=== PATIENT | male | born 1940 | race Caucasian/White ===

== ENCOUNTER 2016-11-03 07:03 | Inpatient (IN) | payer MEDICARE ==
[2016-11-03] VITALS (12 sets, daily range): BP systolic 120–131; BP diastolic 74–89; PULSE 57–80; RESP 20; TEMP 98–98.2; O2SAT 82–98
[~2016-11-03] VITALS: Ht 182.9 cm; Wt 113.5 kg
[~2016-11-03 07:03] MED LIST: AMLO5 PO; CEPH500C3 PO; CORE25TA PO; COUM5TAB PO; FURO1TAB93 PO; GLUCTAB OR; LANO0.2510 PO; LISI-363 PO; MEVA40TA PO; NOVOLOGMXP SQ; POTA-267 PO; SPIR25TA PO; TERA5CAP34 PO; TRAD5TAB PO; TYLE3 PO
[2016-11-03 07:57] LABS: AUTOMATED NEUTROPHIL # 4.5 TH/MM3 (1.8-7.7); BASOPHIL # 0.1 TH/MM3 (0-0.2); EOSINOPHIL # 0.2 TH/MM3 (0-0.4); EOSINOPHIL % 3.1 % (0.0-4.0); HEMATOCRIT 41.6 % (39.0-51.0); HEMO FLAGS DIFF FINAL; LYMPH % 22.8 % (9.0-44.0); LYMPHOCYTE # 1.6 TH/MM3 (1.0-4.8); MEAN CELL VOLUME 102.2 FL (80.0-100.0); MEAN CORPUSCULAR HEMOGLOBIN 35.6 PG (27.0-34.0); MEAN CORPUSCULAR HGB CONC 34.9 % (32.0-36.0); MONO % 8.2 % (0.0-8.0); NEUT % 64.9 % (16.0-70.0); PLATELET COUNT 248 TH/MM3 (150-450); RED BLOOD COUNT 4.07 MIL/MM3 (4.50-5.90); RED CELL DISTRIBUTION WIDTH 13.2 % (11.6-17.2); WHITE BLOOD COUNT 6.9 TH/MM3 (4.0-11.0)
[2016-11-03 08:06] LABS: APTT (PATIENT) 28.2 SEC (24.3-30.1); INTERNATIONAL NORMALIZED RATIO 1.6 RATIO; PROTHROMBIN TIME - PATIENT 17.9 SEC (9.8-11.6)
[2016-11-03] MEDS ORDERED: POTA-243 PO (08:06)
[2016-11-03] MEDS ORDERED: SITA25 PO (08:06)
[2016-11-03] MEDS ORDERED: LOVA40TA PO (08:06)
[2016-11-03] MEDS ORDERED: FURO1TAB60 PO (08:06)
[2016-11-03] MEDS ORDERED: SPIR25TA PO (08:06)
[2016-11-03] MEDS ORDERED: CARV25TA PO (08:06)
[2016-11-03] MEDS ORDERED: DIGO0.12 PO (08:06)
[2016-11-03] MEDS ORDERED: INSU1INJ13 SQ (08:06)
[2016-11-03] MEDS ORDERED: AMLO5CAP PO (08:06)
[2016-11-03] MEDS ORDERED: WARF-23 PO (08:06)
[2016-11-03] MEDS ORDERED: TERA5CAP3 PO (08:06)
[2016-11-03] MEDS ORDERED: TRAD5TAB PO (08:06)
[2016-11-03] MEDS ORDERED: EMPA1TAB PO (08:06)
[2016-11-03] MEDS ORDERED: SODIUM CHLOR 0.9% 250 ML INJ 250 ML ONE (08:11)
[2016-11-03] MEDS ORDERED: VANCOMYCIN HCL 1000 MG VIAL ONE (08:11)
[2016-11-03 08:14] LABS: POTASSIUM 3.7 MEQ/L (3.5-5.1)
[2016-11-03] MEDS ORDERED: methylPREDNISolone SOD SUCC 125 MG/2 ML VIAL IV ONE (08:30)
[2016-11-03] MEDS ORDERED: METOPROLOL TARTRATE 25 MG TAB PO PRN (08:30)
[2016-11-03] MEDS ORDERED: INSULIN HUMAN REGULAR 1,000 UNITS/10 ML VIAL SQ PRN (08:30)
[2016-11-03] MEDS ORDERED: MUPIROCIN 2% OINT 1 APPLIC/GM SYR NASAL SCH (08:30)
[2016-11-03] MEDS ORDERED: SODIUM CHLORID 0.9% 500 ML IV SCH (08:30)
[2016-11-03] MEDS ORDERED: FAMOTIDINE 20 MG/2 ML VIAL IV ONE (08:30)
[2016-11-03] MEDS ORDERED: NO Heparin, Lovenox, Coumadin at least 12 hours prior to procedure. XX PRN (08:30)
[2016-11-03] MEDS ORDERED: NS 1000 ML IV SCH (08:30)
[2016-11-03] MEDS ORDERED: LACTATED RINGER'S 1000 ML IV SCH (08:30)
[2016-11-03] MEDS ORDERED: LORazepam 1 MG TAB SL SCH (08:30)
[2016-11-03] MEDS ORDERED: CHLORHEXIDINE GLUCONATE 2 % 1 PACK (2 CLOTHS) TOP SCH (08:30)
[2016-11-03] MEDS ORDERED: diphenhydrAMINE HCL 50 MG/ML VIAL IV ONE (08:30)
[2016-11-03] MEDS ORDERED: ceFAZolin 2 GM PREMIX 50 ML IV SCH ×2 (08:30→14:15)
[2016-11-03] MEDS ORDERED: VANCOMYCIN 500 MG VIAL ONE (08:34)
[2016-11-03] MEDS ORDERED: LIDOCAINE HCL 2% 50 ML VIAL ONE (08:34)
[2016-11-03] MEDS ORDERED: IODIXANOL 320 MG/ML 50 ML VIAL (for EPS) IV ONE (10:30)
[2016-11-03] MEDS ORDERED: PROPOFOL 200 MG/20 ML AMP IV ONE (11:00)
[2016-11-03] MEDS ORDERED: ONDANSETRON HCL 4 MG/2 ML VIAL IV PRN (11:15)
[2016-11-03] MEDS ORDERED: ACETAMINOPHEN/CODEINE 300 MG/30 MG TAB PO PRN ×2 (11:15)
[2016-11-03] MEDS ORDERED: SODIUM CHLORIDE 0.9% FLUSH 5 ML FLUSH IVF PRN (11:15)
--- NOTE | 2016-11-03 12:43 | RADRPT ---
EXAM DATE/TIME: 11/03/2016 11:17 [facility] COMPARISON: No previous studies available for comparison. INDICATIONS: S/p defibrillator surgery. MEDICAL HISTORY: Congestive heart failure. SURGICAL HISTORY: None. ENCOUNTER: Initial ACUITY: 1 day PAIN SCORE: 0/10 LOCATION: Bilateral chest FINDINGS: A left subclavian multi-lead pacemaker has its tips in the right heart. There is no pneumothorax. T he heart is enlarged. Scattered atelectasis is noted bilaterally. CONCLUSION: 1. No pneumothorax status post placement of left subclavian multi-lead pacemaker which has its tips in the right heart. 2. Cardiomegaly. 3. Scattered atelectasis. Brandon Jaime MD on November 03, 2016 at 12:23 Board Certified Radiologist. This report was verified electronically.
--- NOTE | 2016-11-03 13:42 | EKG ---
Date Performed: 11/03/2016 Time Performed: 08:03:52 PTAGE: 76 years EKG: Demand pacing Pacemaker rhythm - no further analysis Abnormal ECG COMPARED TO PRIOR ELECTRO CARDIOGRAM, No significant change. Underlying rhythm is difficult to compare. PREVIOUS TRACING : 03/04/2016 08.50 DOCTOR: Dimas Devlin Interpretating Date/Time 11/03/2016 13:40:55
[2016-11-03] MEDS ORDERED: GLUCAGON 1 MG/ML VIAL OTHER PRN (14:15)
[2016-11-03] MEDS ORDERED: DEXTROSE 50% IN WATER 50 ML VIAL(D50) IV PUSH PRN (14:15)
[2016-11-03] MEDS ORDERED: SODIUM CHLORIDE 0.9% FLUSH 5 ML FLUSH IV FLUSH PRN (14:15)
[2016-11-03] MEDS ORDERED: CEFAZOLIN INJ 500 MG in SODIUM CHLORIDE 0.9% IRR BTL 500 ML IRRIGATION SCH (14:15)
[2016-11-03] MEDS: ceFAZolin 2 GM PREMIX 50 ML IV SCH (15:44)
[2016-11-03] MEDS ORDERED: INSULIN NovoLIN REGULAR SUPPLEMENTAL SCALE SQ SCH (16:00)
[2016-11-03 17:02] LABS: BLOOD, URINE NEG (NEG); COMMENT (UR) CULT NOT INDICATED; CULTURE IF INDICATED CULT NOT INDICATED; GLUCOSE,URINE 1000 mg/dL (NEG); KETONE, URINE NEG (NEG); MUCUS URINE FEW /lpf (OCC); NITRITE,URINE NEG (NEG); PH, URINE 5.5 (5.0-8.5); URINE COLOR YELLOW (YELLW/STRAW)
[2016-11-03] MEDS: INSULIN ASPART SUPPLEMENTAL SCALE SQ SCH ×2 (17:02→21:48)
[2016-11-03] MEDS: SPIRONOLACTONE 25 MG TAB PO SCH (18:06)
[2016-11-03] MEDS: PRAVASTATIN SOD 40 MG TAB PO SCH (20:09)
[2016-11-03] MEDS: CARVEDILOL 12.5 MG TAB PO SCH (20:10)
[2016-11-03] MEDS: FUROSEMIDE 40 MG TAB PO SCH (20:10)
[2016-11-03] MEDS: POTASSIUM CHLORIDE 10 MEQ CONTROLLED RELEASE TAB PO SCH (20:10)
[2016-11-03] MEDS: TEMAZEPAM 15 MG CAP PO PRN (20:16)
[2016-11-03] MEDS ORDERED: SODIUM CHLORIDE 0.9% FLUSH 5 ML FLUSH IV FLUSH SCH (21:00)
[2016-11-03] MEDS ORDERED: SODIUM CHLORIDE 0.9% FLUSH 5 ML FLUSH IVF SCH (21:00)
[2016-11-04] VITALS (22 sets, daily range): BP systolic 106–140; BP diastolic 67–87; PULSE 49–82; RESP 16–20; TEMP 97.4–98; O2SAT 96–98
[2016-11-04] MEDS: INSULIN ASPART SUPPLEMENTAL SCALE SQ SCH ×4 (06:16→22:23)
[2016-11-04] MEDS ORDERED: MIDAZOLAM HCL 2 MG/2 ML VIAL ONE (06:39)
[2016-11-04] MEDS ORDERED: FAMOTIDINE 20 MG/2 ML VIAL ONE (06:39)
[2016-11-04] MEDS ORDERED: ACETAMINOPHEN 1000 MG/100 ML VIAL IV ONE (06:39)
[2016-11-04] MEDS ORDERED: DEXAMETHASONE SOD PHOS 4 MG/ML VIAL ONE (06:40)
[2016-11-04] MEDS ORDERED: fentaNYL CITRATE 250 MCG/5 ML AMP ONE (06:40)
[2016-11-04] MEDS ORDERED: HEPARIN SODIUM - SQ 10,000 UNITS/ML VIAL ONE (06:46)
[2016-11-04] MEDS ORDERED: BUPIVACAINE LIPOSO PF 1.3% INJ 20 ML, DEXAMETHASONE INJ 4 MG in SODIUM CHLORIDE 0.9% IN... P-ARTICULR SCH (07:00)
[2016-11-04] MEDS: ceFAZolin 2 GM PREMIX 50 ML IV SCH ×2 (07:30)
[2016-11-04] MEDS ORDERED: LACTATED RINGER'S 1000 ML IV SCH (07:30)
[2016-11-04] MEDS ORDERED: SODIUM CHLORID 0.9% 500 ML IV SCH (07:30)
[2016-11-04] MEDS ORDERED: KETAMINE HCL 500 MG/5 ML VIAL ONE (07:43)
--- NOTE | 2016-11-04 08:25 | MB ---
cc: CITLALI PATE MD DATE OF CONSULTATION: 11/03/2016 REASON FOR CONSULTATION: 76 year-old male patient of Dr. Lupillo rios, Yadiel Mack, Dr. Drake. Apparently has history of bi-IV ICD a Biotronik device that he has had some problems with the ventricular wire with the left ventricular lead malfunctioning has been apparently going on for a couple months and they have attempted to reprogram and has been draining apparently the battery. He has been somewhat short of breath, more so in the last couple months. He is also somewhat sedentary. The shortness of breath incurs with minimal levels with exertion. Denies any chest pain. No palpitations. No syncope. No pre syncope, no edema. No weight gain. No ICD shocks. We were consulted after they had attempted to replace the left ventricular wire or lead to evaluate for epicardial lead placement using a thoracotomy approach. PAST MEDICAL HISTORY: 1. 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 2. History of coronary artery disease. 3. Diabetes mellitus type 2. 4. Hypertension. 5. Paroxysmal V-tach. PAST SURGICAL HISTORY: Surgeries include the Bi-IV ICD placement in 2011 prior to that he had an AICD percutaneous PCI. ALLERGIES No known allergies MEDICATIONS home meds include 1. Amlodipine 5 mg p.o. daily. 2. Coreg 25 p.o. b.i.d. 3. Digoxin 0.125 daily. 4. Januvia daily 5. 10 mg p.o. daily. 6. Klor-Con 10 p.o. daily. 7. Lasix 40 b.i.d. 8. He takes Potassium twice a day. 9. Lovastatin 40 p.o. daily. 10. Spirolactone 25 p.o. b.i.d. 11. Terazosin 5 mg p.o. q.h.s. 12. Tradjenta 5 mg p.o. daily 13. transpire flex touch Subcu, insulin, pen as needed. 14. Coumadin 5 mg daily. Last dose was 11/02/2016. FAMILY HISTORY Noncontributory SOCIAL HISTORY No tobacco or alcohol. REVIEW OF SYSTEMS IN GENERAL: No night sweats, fever, heat and cold intolerance. SKIN: No psoriasis, itching or hives. HEAD, EYES, EARS, NOSE, AND THROAT: No blurred vision, hearing loss. RESPIRATORY: Positive for shortness of breath. CARDIOVASCULAR SYSTEM: As above in history of present illness. GASTROINTESTINAL: No diarrhea, vomiting. GENITOURINARY: No burning frequency, urgency. CENTRAL NERVOUS SYSTEM: No history of TIA, CVA, seizure disorder ENDOCRINOLOGY: Positive for diabetes. No hypothyroidism. PHYSICAL EXAMINATION: VITAL SIGNS: On exam blood pressure 130/80, heart rate 60, afebrile. IN GENERAL: Patient is awake, alert in no acute distress. HEAD, EYES, EARS, NOSE, AND THROAT: head is normocephalic, atraumatic. Pupils equal and reactive. Oral mucosa pink, moist. NECK: Supple. No JVD. HEART: Heart sounds S1-S2. Regular rate and rhythm. No rubs, murmurs, gallops amp pacer in situ left upper chest wall. LUNGS: Clear to auscultation. No wheezes, rales or rhonchi. He has a dressing over the left upper chest. ABDOMEN: Abdomen is soft, nontender. No masses or organomegaly. EXTREMITIES: Reveal no cyanosis, clubbing or edema. He has some chronic venous stasis. LABORATORY FINDINGS Shows hemoglobin of 14, hematocrit of 41, white cell count 6.1, platelet count 248, sodium 140, potassium 3.7, BUN 25, creatinine 1.21, INR 1.6. IMPRESSION This is a 76-year-old male with A BiVICD, Attempted left ventricular lead replacement due to valve function. PLAN: The plan is for epicardial lead placement in the a.m. by Dr. Pate. The procedures, alternatives and risks have been discussed with the patient. To continue to hold his Coumadin and resume after his surgery. He will be n.p.o. after midnight and further education given to the patient. DICTATED BY: DU Orozco Citlali Borjas /2:21 PM /8:16 AM
[2016-11-04] MEDS ORDERED: DO NOT ADM ANY ANTICOAGULANT DRUGS XX PRN (08:45)
[2016-11-04] MEDS: CARVEDILOL 12.5 MG TAB PO SCH ×2 (09:00→22:28)
[2016-11-04] MEDS: FUROSEMIDE 40 MG TAB PO SCH ×2 (09:00→22:28)
[2016-11-04] MEDS ORDERED: TRESIBA SQ SCH (09:00)
[2016-11-04] MEDS ORDERED: NON-FORMULARY DRUG (Amlodipine-Benazepril 1 CAP) PO SCH (09:00)
[2016-11-04] MEDS ORDERED: TRADJENTA 5 MG PO SCH (09:00)
[2016-11-04] MEDS: SPIRONOLACTONE 25 MG TAB PO SCH ×2 (09:00→18:32)
[2016-11-04] MEDS ORDERED: JARDIANCE 10 MG PO SCH (09:00)
[2016-11-04] MEDS: POTASSIUM CHLORIDE 10 MEQ CONTROLLED RELEASE TAB PO SCH ×2 (09:00→22:28)
[2016-11-04] MEDS ORDERED: FUROSEMIDE 20 MG/2 ML VIAL IV PUSH PRN ×2 (10:00→10:30)
--- NOTE | 2016-11-04 10:44 | PD.CAR.PN ---
CVT Progress Note Subjective/Hospital Course: schedule for epicardial lead today no complaints Objective: GENERAL: SKIN: Warm and dry. HEAD: Normocephalic. EYES: No scleral icterus. No injection or drainage. NECK: Supple, trachea midline. No JVD or lymphadenopathy. CARDIOVASCULAR: dressing to left chest area Regular rate and rhythm without murmurs, gallops, or rubs. RESPIRATORY: Breath sounds equal bilaterally. No accessory muscle use. GASTROINTESTINAL: Abdomen soft, non-tender, nondistended. MUSCULOSKELETAL: No cyanosis, or edema. BACK: Nontender without obvious deformity. No CVA tenderness. Vital Signs Date Time Temp Pulse Resp B/P Pulse Ox O2 Delivery O2 Flow Rate FiO2 11/04/16 08:00 55 16 125/74 97 11/04/16 06:03 52 11/04/16 05:15 49 11/04/16 04:00 98.0 50 20 107/67 96 11/04/16 04:00 49 11/04/16 03:39 49 11/04/16 02:00 50 11/04/16 01:00 52 11/04/16 00:00 51 11/04/16 00:00 98.0 54 20 112/67 96 11/03/16 23:00 60 11/03/16 22:00 64 11/03/16 21:00 60 11/03/16 20:00 98.0 57 20 131/79 96 11/03/16 20:00 60 11/03/16 19:00 57 11/03/16 18:00 64 11/03/16 17:00 72 11/03/16 16:00 62 11/03/16 15:35 98.2 57 20 122/74 98 11/03/16 15:00 60 11/03/16 13:45 80 120/84 95 Labs: Laboratory Tests Test 11/04/16 07:06 Blood Bank Comment Result Diagram: 11/03/16 0740 11/03/16 0740 Telemetry: NSR (1) HX of BV ICD Plan: for epicardial lead placement today (2) Cardiomyopathy (3) Diabetes mellitus Plan: on insulin sliding scale (4) Hypertension Plan: controlled Susanna Hayes Nov 04, 2016 10:44
[2016-11-04] MEDS ORDERED: PROPOFOL 200 MG/20 ML AMP IV ONE (12:00)
[2016-11-04] MEDS ORDERED: ETOMIDATE 20 MG/10 ML VIAL IV PUSH ONE (12:00)
[2016-11-04] MEDS ORDERED: NEOSTIGMINE 3 MG/3 ML SYR IV ONE (12:00)
[2016-11-04] MEDS ORDERED: ONDANSETRON HCL 4 MG/2 ML VIAL IV PUSH ONE ×2 (12:00)
[2016-11-04] MEDS ORDERED: NORMOSOL R INJ 1,000 ML IV ONE (12:00)
[2016-11-04] MEDS ORDERED: PHENYLEPH/NS 1000 MCG/10 ML SYR IV ONE (12:00)
[2016-11-04] MEDS ORDERED: Post-op Orders (for Pharmacy) MISC OTHER ONE (13:15)
[2016-11-04] MEDS ORDERED: ACETAMINOPHEN 325 MG TAB PO PRN (13:15)
[2016-11-04] MEDS ORDERED: ACETAMINOPHEN/HYDROcodone 325 MG/5 MG TAB PO PRN (13:15)
[2016-11-04] MEDS ORDERED: ONDANSETRON HCL 4 MG/2 ML VIAL IV PUSH PRN (13:15)
[2016-11-04] MEDS ORDERED: SODIUM CHLORIDE 0.9% FLUSH 5 ML FLUSH IV FLUSH PRN (13:15)
[2016-11-04] MEDS ORDERED: MAGNESIUM HYDROXIDE SUSP 30 ML CUP PO PRN (13:15)
--- NOTE | 2016-11-04 13:44 | PD.OP ---
cc: Wendy Olivo MD; Calvin Mack MD; Luciano Drake MD Operative Report Date of Surgery: Nov 04, 2016 Preoperative Diagnosis: Postoperative Diagnosis: Procedure: 1. Left Lateral Mini-Thoracotomy 2. Epicardial Left Ventricular Lead 3. Intercostal nerve Block. . Surgeon: Wendy Olivo Caddy/Caddie Supervisor(s): Jesus Osborn Operation and Findings: PREOPERATIVE DIAGNOSIS 1. Cardiomyopathy 2. CHF POSTOPERATIVE DIAGNOSIS same PROCEDURES 1. Left Lateral Mini-Thoracotomy 2. Epicardial Left Ventricular Lead 3. Intercostal nerve Block. SURGEON Wendy Olivo MD MANAGER OB Isacc Koehler, [facility] General Double-lumen endotracheal. BATTERY CHECKER JUANA Stevens, B[place] Zhu MD OPERATIVE TIME Please see record. COMPLICATIONS None. INDICATION FOR PROCEDURE The patient is a 76yo with cardiomyopathy and recurrent CHF who is being brought to the operating room for epicardial left ventricular lead placement following unsuccessful percutaneous attempt. DESCRIPTION OF PROCEDURE The patient was brought to the operating suite and placed in supine position with the left chest slightly elevated. Following satisfactory induction of general endotracheal anesthesia, he was prepped and draped in the usual sterile fashion. A mini-thoracotomy (5 cm) was then performed in the 4th ICS anterior axillary line and carried down to the pleura. The left pleural space was entered. The pericardium was identified. There was a thick layer of fat overlying the pericardium which was dissected free. A pericardiotomy was performed and viable left ventricular muscle identified. A Biotronik LV screw in lead was placed on the ventricular surface. Serial # [id number], REF # [id number]. Parameters measured were excellent with threshold of 1.4 V at 1.0 ms . The previously closed infraclavicular incision was opened and the pocket irrigated with antibiotic solution. The lead was tunneled and connected to the generator device. The pericardium was reapproximated. A #24-Kiswahili Rashi drain was placed in the pleural space. Intercostal nerve block was performed at the level of the incision and a rib space above and below using Exparel solution. Wounds were closed with 2-0, 3-0, and 4-0 Monocryl. The patient tolerated the procedure well and postoperatively went to recovery in stable condition. Wendy Olivo MD Nov 04, 2016 13:44 Wendy Olivo MD Nov 04, 2016 13:44
[2016-11-04] MEDS ORDERED: *morphine SULFATE 8 MG/ML PERIprocedure ONLY ONE (14:05)
--- NOTE | 2016-11-04 14:41 | RADRPT ---
EXAM DATE/TIME: 11/04/2016 13:58 [facility] COMPARISON: CHEST SINGLE AP, November 03, 2016, 11:17. INDICATIONS : Evaluate congestive heart failure. MEDICAL HISTORY : None. SURGICAL HISTORY : None. ENCOUNTER: Initial ACUITY: 2 days PAIN SCORE: 0/10 LOCATION: chest FINDINGS: Pacemaker is implanted in the left chest. Heart is minimally enlarged. Pulmonary vascularity is nor mal. Small amount of subcutaneous air is seen over the left chest wall. Abandon pacing leads are evident as well. CONCLUSION: 1. There is no pneumothorax. 2. Minimal subcutaneous emphysema. Yadiel Adler MD FACR on November 04, 2016 at 14:30 Board Certified Radiologist. This report was verified electronically.
[2016-11-04] MEDS: ACETAMINOPHEN 1000 MG/100 ML VIAL IV SCH ×2 (14:48→22:27)
[2016-11-04] MEDS ORDERED: KETOROLAC TROMETHAMINE 30 MG/ML (IVP) VIAL IV PUSH SCH (15:00)
[2016-11-04] MEDS: ACETAMINOPHEN/HYDROcodone 325 MG/5 MG TAB PO PRN (15:44)
[2016-11-04] MEDS: DIGOXIN 0.125 MG TAB PO SCH (15:45)
[2016-11-04] MEDS: LISINOPRIL 10 MG TAB PO SCH (15:45)
[2016-11-04] MEDS: amLODIPine BESYLATE 5 MG TAB PO SCH (15:45)
[2016-11-04] MEDS: TERAZOSIN HCL 5 MG CAP PO SCH (15:45)
[2016-11-04] MEDS ORDERED: WARFARIN SOD 5 MG TAB PO SCH (16:00)
--- NOTE | 2016-11-04 16:53 | EKG ---
Date Performed: 11/04/2016 Time Performed: 03:31:20 PTAGE: 76 years EKG: Atrial fibrillation with slow ventricular response with intermittent conduction defect Righ t bundle branch block Possible septal infarct - age undetermined LVH with secondary repolarization ab normality Inferior/lateral ST-T changes may be due to hypertrophy and/or Ischemia. When compared to p revious tracing, previous tracing showed Paced rhythm, this tracing shows atrial fibrillation with sl ow Ventricular response. No pacer spikes seen here and the rate is slower, clinical Correlation is ambrocio ggested. Abnormal ECG PREVIOUS TRACING : 11/03/2016 08.03 DOCTOR: Julio Jacques Interpretating Date/Time 11/04/2016 16:52:32
--- NOTE | 2016-11-04 18:13 | HHI.PR ---
Subjective Remarks Feeling ok Objective Vital Signs Date Time Temp Pulse Resp B/P Pulse Ox O2 Delivery O2 Flow Rate FiO2 11/04/16 18:07 82 11/04/16 17:58 72 11/04/16 16:54 98 21 11/04/16 16:00 68 11/04/16 15:15 62 11/04/16 15:15 97.9 71 20 140/87 96 11/04/16 15:00 97.9 81 16 127/82 99 Nasal Cannula 3 Arterial Line 11/04/16 14:45 71 16 139/88 97 Nasal Cannula 3 11/04/16 14:30 70 16 132/87 96 Nasal Cannula 4 Arterial Line 11/04/16 14:15 69 16 149/94 95 Nasal Cannula 5 140/72 11/04/16 14:00 72 16 142/85 94 Nasal Cannula 5 135/70 11/04/16 13:49 96.8 81 16 127/82 99 Simple Mask 10 132/68 11/04/16 11:11 97.4 52 138/81 97 11/04/16 11:00 52 11/04/16 10:50 97.4 52 138/81 96 11/04/16 10:00 54 11/04/16 09:00 52 11/04/16 08:00 55 16 125/74 97 11/04/16 06:03 52 11/04/16 05:15 49 11/04/16 04:00 98.0 50 20 107/67 96 11/04/16 04:00 49 11/04/16 03:39 49 11/04/16 02:00 50 11/04/16 01:00 52 11/04/16 00:00 51 11/04/16 00:00 98.0 54 20 112/67 96 11/03/16 23:00 60 11/03/16 22:00 64 11/03/16 21:00 60 11/03/16 20:00 98.0 57 20 131/79 96 11/03/16 20:00 60 11/03/16 19:00 57 I/O 11/03/16 11/03/16 11/03/16 11/04/16 11/04/16 11/04/16 07:00 15:00 23:00 07:00 15:00 23:00 Intake Total 490 ml 240 ml 1250 ml 360 ml Output Total 500 ml 1225 ml 762 ml Balance -10 ml -985 ml 488 ml 360 ml Intake Oral 240 ml 240 ml 0 ml 360 ml IV Total 250 ml 0 ml FFP 250 ml Other 1000 ml Output Urine Total 500 ml 1225 ml 600 ml Drainage Total 62 ml Estimated Blood Loss 100 ml Result Diagram: 11/03/16 0740 11/03/16 0740 Imaging Alert, fully oriented Lungs: ventilated Heart: S1, S2 regular, no gallop abdomen: soft, no mass Ext: no edema Clean left infraclavicular area surgical wound Last Impressions Chest X-Ray 11/04/16 0000 Signed Impressions: Service Date/Time: Friday, November 04, 2016 13:58 - CONCLUSION: 1. There is no pneumothorax. 2. Minimal subcutaneous emphysema. Yadiel Adler MD FACR Current Medications Medications (Trade) Dose Ordered Sig/Adrián Route Start Time Stop Time Status Last Admin Miscellaneous Information NO Heparin, Loven... UNSCH PRN XX 11/03/16 08:30 11/07/16 08:29 (Restoril) 15 mg HS PRN PO 11/03/16 11:15 11/03/16 20:16 (Coreg) 25 mg BID PO 11/03/16 21:00 11/03/16 20:10 (Lanoxin) 0.125 mg DAILY PO 11/04/16 09:00 11/04/16 15:45 (Lasix) 40 mg BID PO 11/03/16 21:00 11/03/16 20:10 (Pravachol) 40 mg HS PO 11/03/16 21:00 11/03/16 20:09 (KCl) 10 meq BID PO 11/03/16 21:00 11/03/16 20:10 (Aldactone) 25 mg BIDPC PO 11/03/16 18:00 11/03/16 18:06 (Hytrin) 5 mg DAILY PO 11/04/16 09:00 11/04/16 15:45 (Coumadin) 5 mg DAILY@1600 PO 11/04/16 16:00 Hold Patient Own Medication PT OWN MED: JARDIA... DAILY PO 11/04/16 09:00 Hold Patient Own Medication PT OWN MED: ROSANNE... DAILY SQ 11/04/16 09:00 Hold Patient Own Medication PT OWN MED: TRADJE... DAILY PO 11/04/16 09:00 Hold (Norvasc) 5 mg DAILY PO 11/03/16 12:00 11/04/16 15:45 (Prinivil) 10 mg DAILY PO 11/04/16 09:00 11/04/16 15:45 (D50w (Vial) Inj) 25 ml UNSCH PRN IV PUSH 11/03/16 14:15 Glucagon 1 mg 1 mg UNSCH PRN OTHER 11/03/16 14:15 Lactated Ringer's 1,000 ml @ 30 mls/hr Q24H IV 11/04/16 07:30 (NS 500 ml Inj) 500 ml @ 30 mls/hr [id number] IV 11/04/16 07:30 11/05/16 07:29 Miscellaneous Information ALL NURSING DEPARTME... UNSCH PRN XX 11/04/16 08:45 11/05/16 08:44 (NS Flush) 2 ml BID IV FLUSH 11/04/16 21:00 IV Flush 2 ml 2 ml UNSCH PRN IV FLUSH 11/04/16 13:15 (Ancef Inj/NS Inj) 100 ml @ 200 mls/hr Q8H IV 11/04/16 16:00 11/05/16 08:29 11/04/16 17:05 (Protonix) 40 mg HS PO 11/04/16 21:00 (Zofran Inj) 4 mg Q6H PRN IV PUSH 11/04/16 13:15 (Surfak) 240 mg HS PO 11/04/16 21:00 (Milk Of Magnesia Liq) 30 ml DAILY PRN PO 11/04/16 13:15 (Tylenol) 650 mg Q4H PRN PO 11/04/16 13:15 (Sellers 5-325 Mg) 1 tab Q3H PRN PO 11/04/16 13:15 11/04/16 15:44 (Sellers 5-325 Mg) 2 tab Q3H PRN PO 11/04/16 13:15 (Ofirmev Inj) 1,000 mg Q6H IV 11/04/16 15:00 11/05/16 09:01 (Toradol Inj) 15 mg Q6H IV PUSH 11/04/16 21:00 11/05/16 15:01 Assessment and Plan Problem List: (1) HX of BV ICD Status: Acute Plan: Epicardial lead implanted today. Doing well BIV pacing (2) Cardiomyopathy Status: Acute Plan: On optimal medical management (3) Hypertension Status: Acute Plan: SBP 127 Meds reinitiated Luciano Drake MD Nov 04, 2016 18:13
--- NOTE | 2016-11-04 19:51 | MP ---
cc: EMILIA RAMIREZ M.D. DATE OF SURGERY: 11/04/2016. OPERATION: Biventricular pacer-defibrillator removal, pocket revision, left subclavian venoplasty and discontinued attempt to implant a left ventricular pacing and sensing lead via the coronary sinus. INDICATIONS FOR THE PROCEDURE: Mr. Jimenes is a 76-year-old gentleman with congestive heart failure, cardiomyopathy on optimal medical treatment with an ejection fraction of 30%, CHF class III, previous biventricular pacer-defibrillator implanted in 2011. The left ventricular lead is not working. He was admitted for new lead implantation. The risks, the nature and the benefits of the procedure were clearly stated to him. The risks include pneumothorax, cardiac perforation, stroke, need for open heart surgery and even . The patient understood and agreed to proceed. DESCRIPTION OF THE PROCEDURE IN DETAIL: After written informed consent was obtained, the patient was brought to the EP lab where he was prepped and draped in the usual sterile fashion. Conscious sedation was initiated and maintained throughout the procedure by the anesthesiologist. Once sedation was verified, the left infraclavicular area was anesthetized with 2% Xylocaine. Using a #11 scalpel, a 3-cm incision was made over the existing generator. Dissection was then taken down to the deep fascial layer using Bovie cautery and blunt dissection. Once exposed, the generator was removed from the pocket. Scar tissue was removed. The lead pocket was expanded. Pocket revision was performed. Then using modified Seldinger technique, I did attempt to cannulate the left subclavian. At that point, I was unable to advance the wire. I did try to advance the Glidewire; I was unable to advance the Glidewire. Over the Glidewire, I did advance a 5-Armenian dilator and introducer. As the wire was removed, a peripheral venography was performed that showed complete or occlusion of the left subclavian. At this point I decided to proceed with venoplasty. A straight Glidewire was advanced. After multiple manipulations, I was able to cross the lesion. At this point, I did attempt to dilate with a 7-Armenian dilator. I was unable to cross. I decided to proceed with venoplasty. The Glidewire was exchanged over a Quick-Cross for a stiff Amplatz wire. Then over the wire, an Admiral 40 x 8 balloon was advanced. I inflated the balloon at 12 atmospheres for 8.3 mm. Three inflations were performed. At that point, I did remove the balloon. Over the wire, a 9-Armenian dilator and introducer were advanced. As the dilator was removed, a CS cannulation sheath was advanced. At this point, I did remove the wire. Through the sheath, a quadripolar steerable catheter was advanced. I did attempt to cannulate the coronary sinus on multiple occasions. I did access the coronary sinus but the CS cannulation and the wire were unable to advance. 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 At that point, I decided not to proceed with further attempts. The procedure was complete. I did not want to overload the patient with contrast. The CS cannulation sheath and the #9 Armenian catheter were removed. A 2-0 Vicryl suture was placed at the exit point to prevent back bleeding. Then the pocket was copiously irrigated using antibiotic solution. I did cut the head of the left ventricular lead. A plug was put at the left ventricular portion. The patient is going to be referred for epicardial lead implantation. I did proceed with wound closure. The deep fascial layer was approximated using #2-0 Vicryl suture in a continuous fashion. The subcutaneous layer was approximated using #2-0 Vicryl suture in a continuous fashion. Steri-Strips were applied to the wound followed by a sterile compression dressing. This was a very difficult and complex case. No incident reports. For information about hardware, please refer to the previous dictation. CONCLUSIONS: 1. Biventricular pacer-defibrillator removal, pocket revision, left subclavian venoplasty. 2. Discontinued attempt to implant a left ventricular lead. COMMENTS AND RECOMMENDATIONS: As mentioned before, the patient is going to be transferred to the recovery room. CV surgery will be consulted for lead insertion. MD CALOS Mckay/BARRETT /12:18 PM /7:38 PM
[2016-11-04] MEDS ORDERED: PANTOPRAZOLE SOD 40 MG DELAYED RELEASE TAB PO SCH (21:00)
[2016-11-04] MEDS: KETOROLAC TROMETHAMINE 30 MG/ML (IVP) VIAL IV PUSH SCH (21:00)
[2016-11-04] MEDS ORDERED: DOCUSATE CALCIUM 240 MG CAP PO SCH (21:00)
[2016-11-04] MEDS: SODIUM CHLORIDE 0.9% FLUSH 5 ML FLUSH IV FLUSH SCH (22:27)
[2016-11-04] MEDS: PRAVASTATIN SOD 40 MG TAB PO SCH (22:27)
[2016-11-04] MEDS ORDERED: INSULIN HUMAN REGULAR 1,000 UNITS/10 ML VIAL SQ PRN (23:45)
[2016-11-05] VITALS (19 sets, daily range): BP systolic 96–116; BP diastolic 62–72; PULSE 68–72; RESP 18–20; TEMP 97.4–98; O2SAT 95–96
[2016-11-05] MEDS: ACETAMINOPHEN/HYDROcodone 325 MG/5 MG TAB PO PRN (00:56)
[2016-11-05] MEDS: TEMAZEPAM 15 MG CAP PO PRN (02:08)
[2016-11-05] MEDS: ACETAMINOPHEN 1000 MG/100 ML VIAL IV SCH ×2 (02:08→09:14)
[2016-11-05] MEDS: KETOROLAC TROMETHAMINE 30 MG/ML (IVP) VIAL IV PUSH SCH ×2 (02:09→09:19)
--- NOTE | 2016-11-05 04:45 | RADRPT ---
EXAM DATE/TIME: 11/05/2016 03:27 [facility] COMPARISON: CHEST SINGLE AP, November 04, 2016, 13:58. INDICATIONS : Shortness of breath, possible pulmonary disease. MEDICAL HISTORY : Congestive heart failure. SURGICAL HISTORY : None. ENCOUNTER: Subsequent ACUITY: 3 days PAIN SCORE: 0/10 LOCATION: Bilateral chest FINDINGS: Trace bibasilar atelectasis again noted not significantly changed. No large effusion seen. No pneumot horax. Mild cardiomegaly is stable. Cardiac pacer/defibrillator again noted. CONCLUSION: No significant change mild bibasilar atelectasis and cardiomegaly. Darci Dow MD on November 05, 2016 at 4:43 Board Certified Radiologist. This report was verified electronically.
[2016-11-05 04:54] LABS: BASOPHIL % 0.3 % (0.0-2.0); HEMATOCRIT 33.2 % (39.0-51.0); HEMO FLAGS DIFF FINAL; LYMPH % 5.6 % (9.0-44.0); LYMPHOCYTE # 0.6 TH/MM3 (1.0-4.8); MEAN CELL VOLUME 101.3 FL (80.0-100.0); MEAN CORPUSCULAR HEMOGLOBIN 35.3 PG (27.0-34.0); MEAN CORPUSCULAR HGB CONC 34.8 % (32.0-36.0); NEUT % 88.1 % (16.0-70.0); PLATELET COUNT 179 TH/MM3 (150-450); RED BLOOD COUNT 3.28 MIL/MM3 (4.50-5.90); RED CELL DISTRIBUTION WIDTH 13.4 % (11.6-17.2); WHITE BLOOD COUNT 11.4 TH/MM3 (4.0-11.0)
[2016-11-05 05:11] LABS: BICARBONATE 22.9 MEQ/L (21.0-32.0); POTASSIUM 4.6 MEQ/L (3.5-5.1)
[2016-11-05] MEDS: INSULIN ASPART SUPPLEMENTAL SCALE SQ SCH (07:00)
[2016-11-05] MEDS: SODIUM CHLORIDE 0.9% FLUSH 5 ML FLUSH IV FLUSH SCH (09:15)
[2016-11-05] MEDS: TERAZOSIN HCL 5 MG CAP PO SCH (09:17)
[2016-11-05] MEDS: POTASSIUM CHLORIDE 10 MEQ CONTROLLED RELEASE TAB PO SCH (09:17)
[2016-11-05] MEDS: FUROSEMIDE 40 MG TAB PO SCH (09:17)
[2016-11-05] MEDS: SPIRONOLACTONE 25 MG TAB PO SCH (09:17)
[2016-11-05] MEDS: DIGOXIN 0.125 MG TAB PO SCH (09:18)
[2016-11-05] MEDS: amLODIPine BESYLATE 5 MG TAB PO SCH (09:18)
[2016-11-05] MEDS: LISINOPRIL 10 MG TAB PO SCH (09:18)
[2016-11-05] MEDS: CARVEDILOL 12.5 MG TAB PO SCH (09:18)
--- NOTE | 2016-11-05 10:32 | PD.CARD.PN ---
Subjective Subjective Remarks Pt feels well, wants to go home soon after chest tube pulled. Objective Medications Administered Medications Medications (Trade) Dose Ordered Sig/Adrián Route PRN Reason Start Time Stop Time Status Last Admin Dose Admin Temazepam (Restoril) 15 mg HS PRN PO SLEEP 11/03/16 11:15 11/05/16 02:08 Carvedilol (Coreg) 25 mg BID PO 11/03/16 21:00 11/05/16 09:18 Digoxin (Lanoxin) 0.125 mg DAILY PO 11/04/16 09:00 11/05/16 09:18 Furosemide (Lasix) 40 mg BID PO 11/03/16 21:00 11/05/16 09:17 Pravastatin Sodium (Pravachol) 40 mg HS PO 11/03/16 21:00 11/04/16 22:27 Potassium Chloride (KCl) 10 meq BID PO 11/03/16 21:00 11/05/16 09:17 Spironolactone (Aldactone) 25 mg BIDPC PO 11/03/16 18:00 11/05/16 09:17 Terazosin HCl (Hytrin) 5 mg DAILY PO 11/04/16 09:00 11/05/16 09:17 Amlodipine Besylate (Norvasc) 5 mg DAILY PO 11/03/16 12:00 11/05/16 09:18 Lisinopril (Prinivil) 10 mg DAILY PO 11/04/16 09:00 11/05/16 09:18 IV Flush (NS Flush) 2 ml BID IV FLUSH 11/04/16 21:00 11/05/16 09:15 Pantoprazole Sodium (Protonix) 40 mg HS PO 11/04/16 21:00 11/04/16 21:00 Docusate Calcium (Surfak) 240 mg HS PO 11/04/16 21:00 11/04/16 21:00 Acetaminophen/ Hydrocodone Bitart ([place] 5-325 Mg) 1 tab Q3H PRN PO PAIN SCALE 3 TO 5 11/04/16 13:15 11/05/16 00:56 Acetaminophen/ Hydrocodone Bitart ([place] 5-325 Mg) 2 tab Q3H PRN PO PAIN SCALE 6 TO 10 11/04/16 13:15 11/05/16 04:09 Ketorolac Tromethamine (Toradol Inj) 15 mg Q6H IV PUSH 11/04/16 21:00 11/05/16 15:01 11/05/16 09:19 Vital Signs / I&O Vital Signs Date Time Temp Pulse Resp B/P Pulse Ox O2 Delivery O2 Flow Rate FiO2 11/05/16 07:45 97.4 70 20 96/62 95 11/05/16 06:04 69 11/05/16 06:00 69 11/05/16 05:00 69 11/05/16 04:24 98.0 69 20 106/72 96 11/05/16 04:23 69 11/05/16 03:04 69 11/05/16 02:35 98.0 69 20 105/72 96 11/05/16 02:00 68 11/05/16 01:00 68 11/05/16 00:00 68 11/05/16 00:00 98.0 69 20 105/72 96 11/04/16 23:00 68 11/04/16 22:00 68 11/04/16 20:00 98.0 70 20 106/73 96 11/04/16 20:00 68 11/04/16 19:00 68 11/04/16 18:07 82 11/04/16 17:58 72 11/04/16 16:54 98 21 11/04/16 16:00 68 11/04/16 15:15 62 11/04/16 15:15 97.9 71 20 140/87 96 11/04/16 15:00 97.9 81 16 127/82 99 Nasal Cannula 3 Arterial Line 11/04/16 14:45 71 16 139/88 97 Nasal Cannula 3 11/04/16 14:30 70 16 132/87 96 Nasal Cannula 4 Arterial Line 11/04/16 14:15 69 16 149/94 95 Nasal Cannula 5 140/72 11/04/16 14:00 72 16 142/85 94 Nasal Cannula 5 135/70 11/04/16 13:49 96.8 81 16 127/82 99 Simple Mask 10 132/68 11/04/16 11:11 97.4 52 138/81 97 11/04/16 11:00 52 11/04/16 10:50 97.4 52 138/81 96 I/O 11/04/16 11/04/16 11/04/16 11/05/16 11/05/1617 07:00 15:00 23:00 07:00 15:00 23:00 Intake Total 240 ml 1250 ml 360 ml 1020 ml Output Total 1225 ml 762 ml 92 ml 570 ml Balance -985 ml 488 ml 268 ml 450 ml Intake Oral 240 ml 0 ml 360 ml 720 ml IV Total 0 ml 300 ml FFP 250 ml Other 1000 ml Output Urine Total 1225 ml 600 ml 500 ml Chest Tube Drainage Total 92 ml 70 ml Drainage Total 62 ml Estimated Blood Loss 100 ml Physical Exam GENERAL: This is a well-nourished, well-developed patient, in no apparent distress. CARDIOVASCULAR: Regular rate and rhythm without murmurs, gallops, or rubs. RESPIRATORY: Clear to auscultation. Breath sounds equal bilaterally. No wheezes , rales, or rhonchi. GASTROINTESTINAL: Abdomen soft, non-tender, nondistended. Normal active bowel sounds MUSCULOSKELETAL: Extremities without clubbing, cyanosis, or edema. NEURO: Alert & Oriented x4 to person, place, time, situation. Moves all ext x4 Laboratory Laboratory Tests Test 11/05/16 03:30 White Blood Count 11.4 TH/MM3 Red Blood Count 3.28 MIL/MM3 Hemoglobin 11.6 GM/DL Hematocrit 33.2 % Mean Corpuscular Volume 101.3 FL Mean Corpuscular Hemoglobin 35.3 PG Mean Corpuscular Hemoglobin 34.8 % Concent Red Cell Distribution Width 13.4 % Platelet Count 179 TH/MM3 Mean Platelet Volume 9.9 FL Neutrophils (%) (Auto) 88.1 % Lymphocytes (%) (Auto) 5.6 % Monocytes (%) (Auto) 6.0 % Eosinophils (%) (Auto) 0.0 % Basophils (%) (Auto) 0.3 % Neutrophils # (Auto) 10.0 TH/MM3 Lymphocytes # (Auto) 0.6 TH/MM3 Monocytes # (Auto) 0.7 TH/MM3 Eosinophils # (Auto) 0.0 TH/MM3 Basophils # (Auto) 0.0 TH/MM3 CBC Comment DIFF FINAL Differential Comment Sodium Level 136 MEQ/L Potassium Level 4.6 MEQ/L Chloride Level 104 MEQ/L Carbon Dioxide Level 22.9 MEQ/L Anion Gap 9 MEQ/L Blood Urea Nitrogen 30 MG/DL Creatinine 1.19 MG/DL Estimat Glomerular Filtration 59 ML/MIN Rate Random Glucose 208 MG/DL Calcium Level 7.8 MG/DL Imaging Last Impressions Chest X-Ray 11/05/16 0500 Signed Impressions: Service Date/Time: Saturday, November 05, 2016 03:27 - CONCLUSION: No significant change mild bibasilar atelectasis and cardiomegaly. Darci Dow MD Assessment and Plan Problem List: (1) HX of BV ICD Assessment and Plan: s/p epicardial lead placement (2) Cardiomyopathy Assessment and Plan: icd in place; on scout/bb (3) Diabetes mellitus (4) Hypertension Assessment and Plan chest tube mgt per cv surg; will sign off, pls call with questions. Pavan Marrero MD Nov 05, 2016 10:32
[2016-11-05] MEDS ORDERED: HYDR-3516 PO (11:54)
--- NOTE | 2016-11-05 12:00 | HHI.DS ---
Discharge Summary Admission Date Nov 04, 2016 at 17:17 Discharge Date: Nov 05, 2016 Admitting Diagnosis Cardiomyopathy Malfunction LV lead of a BiV pacemaker (1) Cardiomyopathy Diagnosis: Principal (2) HX of BV ICD Diagnosis: Principal Procedures Epicardial lead placement Brief History 76 y/o male presents with malfunctioning LV lead in a biventricular device. CBC/BMP: 11/05/16 0330 11/05/16 0330 Significant Findings Laboratory Tests Test 11/03/16 11/03/16 11/05/16 07:40 15:55 03:30 Red Blood Count 4.07 MIL/MM3 3.28 MIL/MM3 (4.50-5.90) (4.50-5.90) Mean Corpuscular Volume 102.2 FL 101.3 FL (80.0-100.0) (80.0-100.0) Mean Corpuscular Hemoglobin 35.6 PG 35.3 PG (27.0-34.0) (27.0-34.0) Monocytes (%) (Auto) 8.2 % (0.0-8.0) Prothrombin Time 17.9 SEC (9.8-11.6) Blood Urea Nitrogen 25 MG/DL (7-18) 30 MG/DL (7-18) Estimat Glomerular Filtration 58 ML/MIN (>89) 59 ML/MIN (>89) Rate Random Glucose 137 MG/DL 208 MG/DL (74-106) (74-106) Calcium Level 8.4 MG/DL 7.8 MG/DL (8.5-10.1) (8.5-10.1) Urine Glucose (UA) 1000 mg/dL (NEG) Urine Mucus FEW /lpf (OCC) White Blood Count 11.4 TH/MM3 (4.0-11.0) Hemoglobin 11.6 GM/DL (13.0-17.0) Hematocrit 33.2 % (39.0-51.0) Neutrophils (%) (Auto) 88.1 % (16.0-70.0) Lymphocytes (%) (Auto) 5.6 % (9.0-44.0) Neutrophils # (Auto) 10.0 TH/MM3 (1.8-7.7) Lymphocytes # (Auto) 0.6 TH/MM3 (1.0-4.8) Imaging Last Impressions Chest X-Ray 11/05/16 0500 Signed Impressions: Service Date/Time: Saturday, November 05, 2016 03:27 - CONCLUSION: No significant change mild bibasilar atelectasis and cardiomegaly. Darci Dow MD PE at Discharge chest - CTA COR - RRR ABD - soft, NT, NABS wound - dry and intact Hospital Course Patient underwent LV epicardial lead placement by Dr. Olivo yesterday and will be discharged today. POSTOP course was stable and uneventful. Pt Condition on Discharge: Good Discharge Disposition: Discharge Home Discharge Instructions DIET: Follow Instructions for: Heart Healthy Diet Activities you can perform: Weight Bearing as [place]an[place], Shower Only-No Bath Activities to avoid: Lifting/Bending, Strenuous Activity, Driving Follow up Referrals: Appointment for Follow Up - 2 Weeks with Wendy Olivo MD Cardiology - 2 Weeks with Luciano Drake MD PCP Follow-up - 2 Weeks New Medications: Hydrocodone-Acetaminophen (Hydrocodone-Acetaminophen) 5-325 mg Tab 1 TAB PO Q3H PRN PAIN SCALE 3 TO 5 #20 Ref 0 TAB Continued Medications: Amlodipine-Benazepril (Amlodipine-Benazepril) 5-10 Mg Cap 1 CAP PO DAILY Blood Pressure Management #30 Ref 0 CAP Carvedilol (Carvedilol) 25 Mg Tab 25 MG PO BID #60 Ref 0 TAB Digoxin (Digoxin) 0.125 Mg Tab 0.125 MG PO DAILY Regulate Heart Beat #30 Ref 0 TAB Empagliflozin (Jardiance) 10 Mg Tab 10 MG PO DAILY Blood Sugar Management #30 Ref 0 TAB Furosemide (Lasix) 40 Mg Tab 40 MG PO BID #60 Ref 0 TAB Insulin Degludec Inj (Tresiba Flextouch Pen Inj) 600 unit/3 ML Pen 1 UNITS SQ DIRECTED Blood Sugar Management #9 Ref 0 ML Linagliptin (Tradjenta) 5 Mg Tab 5 MG PO DAILY Blood Sugar Management #30 Ref 0 TAB Lovastatin (Lovastatin) 40 Mg Tab 40 MG PO HS Cholesterol Management #30 Ref 0 TAB Potassium Chloride ER (Klor-Con 10) 10 Meq Tab 10 MEQ PO BID Electrolyte Replacement #60 Ref 0 TAB Sitagliptin (Januvia) 25 Mg Tab Unknown Dose PO DAILY Blood Sugar Management #30 Ref 0 TAB Spironolactone (Spironolactone) 25 Mg Tab 25 MG PO BIDPC #60 Ref 0 TAB Terazosin (Terazosin) 5 Mg Cap 5 MG PO DAILY #30 Ref 0 CAP Warfarin (Warfarin) 5 Mg Tab 5 MG PO DAILY Blood Clot Prevention #30 Ref 0 TAB Deborah Galan MD Nov 05, 2016 12:00
== END 2016-11-05 13:45 | disposition home or self-care (01) | DRG 265 ==
LOC: HDIC 07:03 → HDOC 07:03 → HDIC 14:13 → HDOC 14:13 → HCIS 14:14 → UNDOADMIN 14:14 → HCIS 14:14 → HDOC 11-04 17:22
PROVIDERS: ADMIT Internal Medicine Interventional Cardiology; ATTEND Internal Medicine Interventional Cardiology
PROC: 05763ZZ Dilation of Left Subclavian Vein, Percutaneous Approach (ICD-10-PCS; 2016-11-03)
PROC: 0JPT3PZ Removal of Cardiac Rhythm Related Device from Trunk Subcutaneous Tissue and Fascia, Percutaneous Approach (ICD-10-PCS; 2016-11-03)
PROC: 02PA3MZ Removal of Cardiac Lead from Heart, Percutaneous Approach (ICD-10-PCS; 2016-11-03)
PROC: 3E0T3CZ (ICD-10-PCS; 2016-11-04)
PROC: 30233K1 Transfusion of Nonautologous Frozen Plasma into Peripheral Vein, Percutaneous Approach (ICD-10-PCS; 2016-11-04)
PROC: 02HN0KZ Insertion of Defibrillator Lead into Pericardium, Open Approach (ICD-10-PCS; principal; 2016-11-04 11:25)
DX: T82.190A Other mechanical complication of cardiac electrode, initial encounter (principal); I42.9 Cardiomyopathy, unspecified; I82.B22 Chronic embolism and thrombosis of left subclavian vein; I25.82 Chronic total occlusion of coronary artery; I50.9 Heart failure, unspecified; I11.0 Hypertensive heart disease with heart failure; I25.10 Atherosclerotic heart disease of native coronary artery without angina pectoris; E11.9 Type 2 diabetes mellitus without complications; Y84.8 Other medical procedures as the cause of abnormal reaction of the patient, or of later complication, without mention of misadventure at the time of the procedure; Z79.01 Long term (current) use of anticoagulants; Z79.84 Long term (current) use of oral hypoglycemic drugs
CPT/HCPCS: 36430; 37248; 71010; 80048; 81001; 82948; 85025; 85610; 85730; 86850; 86900; 86901; 86927; 87641; 93005; 94150; C1725; C1769; C1896; C9290; J0131; J0690; J1100; J1644; J1815; J1885; J2250; J2270; J2370; J2405; J2710; J3010; J3370; J7050; P9017; Q9967

== ENCOUNTER 2016-12-15 15:32 | Emergency (ER) | payer MEDICARE ==
[~2016-12-15] VITALS: Ht 182.9 cm; Wt 115.0 kg
[~2016-12-15 15:32] MED LIST changes: -AMLO5 PO; +AMLO5CAP PO; +CARV25TA PO; -CEPH500C3 PO; -CORE25TA PO; -COUM5TAB PO; +DIGO0.12 PO; +EMPA1TAB PO; +FURO1TAB60 PO; -FURO1TAB93 PO; -GLUCTAB OR; +HYDR-3516 PO; +INSU1INJ13 SQ; -LANO0.2510 PO; -LISI-363 PO; +LOVA40TA PO; -MEVA40TA PO; -NOVOLOGMXP SQ; +POTA-243 PO; -POTA-267 PO; +SITA25 PO; +TERA5CAP3 PO; -TERA5CAP34 PO; -TYLE3 PO; +WARF-23 PO
[2016-12-15 15:34] VITALS: BP 136/98; PULSE 105; RESP 24; TEMP 97.8; O2SAT 94
[2016-12-15 16:25] VITALS: RESP 20; O2SAT 96
--- NOTE | 2016-12-15 16:37 | PD ---
HPI Chief Complaint: Respiratory Distress Time Seen by Provider: 16:13 Travel History International Travel<30 days: No Contact w/Intl Traveler<30days: No Traveled to known affect area: No History of Present Illness HPI Is a 76-year-old male multiple medical problems including cardiomyopathy and CHF , on warfarin, CAD, as well as pulmonary hypertension, who presents to the emergency department after he went for routine annual exam with Dr. Dorantes and was referred to the emergency department because been having several weeks to months worth of worsening shortness of breath and dyspnea on exertion. States symptoms been ongoing for some time. No acute change today. No chest pain. No lower extremity swelling. Otherwise has been doing generally well and healthy. History Past Medical History Narrative Medical Cardiomyopathy/CHF, status post AICD placement, on warfarin CAD Diabetes Hypertension History of paroxysmal V. tach Status post Biotronik AICD Known 3.5 cm AAA Pulmonary hypertension on echo Tetanus Vaccination: < 5 Years Influenza Vaccination: No Social History Alcohol Use: No Tobacco Use: No Allergies-Medications (Allergen,Severity, Reaction): Coded Allergies: Iodine (Verified Allergy, Severe, 12/15/16) Reported Meds & Prescriptions Reported Meds & Active Scripts Active Hydrocodone-Acetaminophen 5-325 mg Tab 1 Tab PO Q3H PRN Reported Warfarin 5 Mg Tab 5 Mg PO DAILY Tresiba Flextouch Pen Inj (Insulin Degludec Inj) 600 unit/3 ML Pen 1 Units SQ DIRECTED Tradjenta (Linagliptin) 5 Mg Tab 5 Mg PO DAILY Terazosin (Terazosin HCl) 5 Mg Cap 5 Mg PO DAILY Spironolactone 25 Mg Tab 25 Mg PO BIDPC Lovastatin 40 Mg Tab 40 Mg PO HS Lasix (Furosemide) 40 Mg Tab 40 Mg PO BID Klor-Con 10 (Potassium Chloride) 10 Meq Tab 10 Meq PO BID Jardiance (Empagliflozin) 10 Mg Tab 10 Mg PO DAILY Januvia (Sitagliptin Phosphate) 25 Mg Tab Unknown Dose PO DAILY Digoxin 0.125 Mg Tab 0.125 Mg PO DAILY Carvedilol 25 Mg Tab 25 Mg PO BID Amlodipine-Benazepril 5-10 Mg Cap 1 Cap PO DAILY Review of Systems Except as stated in HPI: all other systems reviewed are Neg Physical Exam Narrative GENERAL: Generally well-appearing 76 year-old man, no acute distress. SKIN: Warm and dry. HEAD: Atraumatic. Normocephalic. EYES: Pupils equal and round. No scleral icterus. No injection or drainage. ENT: No nasal bleeding or discharge. Mucous membranes pink and moist. NECK: Trachea midline. No JVD. CARDIOVASCULAR: Regular rate and rhythm. No murmur appreciated. RESPIRATORY: Scattered Rales in the bases. No respiratory distress. GASTROINTESTINAL: Abdomen soft, non-tender, nondistended. Hepatic and splenic margins not palpable. MUSCULOSKELETAL: No obvious deformities. No significant edema. NEUROLOGICAL: Awake and alert. No obvious cranial nerve deficits. Motor grossly within normal limits. Normal speech. PSYCHIATRIC: Appropriate mood and affect; insight and judgment normal. Data Data Last Documented VS Vital Signs Date Time Temp Pulse Resp B/P Pulse Ox O2 Delivery O2 Flow Rate FiO2 12/15/16 16:25 20 96 Room Air 12/15/16 15:34 97.8 105 136/98 Orders Electrocardiogram (12/15/16 ) Complete Blood Count With Diff (12/15/16 16:31) Comprehensive Metabolic Panel (12/15/16 16:31) B-Type Natriuretic Peptide (12/15/16 16:31) Magnesium (Mg) (12/15/16 16:31) Troponin I (12/15/16 16:31) Iv Access Insert/Monitor (12/15/16 16:31) Ecg Monitoring (12/15/16 16:31) Oximetry (12/15/16 16:31) Oxygen Administration (12/15/16 16:31) Chest, Pa & Lat (12/15/16 16:31) Sodium Chloride 0.9% Flush (Ns Flush) (12/15/16 16:45) Labs Laboratory Tests Test 12/15/16 16:40 White Blood Count 6.1 TH/MM3 Red Blood Count 3.56 MIL/MM3 Hemoglobin 12.4 GM/DL Hematocrit 36.1 % Mean Corpuscular Volume 101.4 FL Mean Corpuscular Hemoglobin 35.0 PG Mean Corpuscular Hemoglobin 34.5 % Concent Red Cell Distribution Width 15.3 % Platelet Count 218 TH/MM3 Mean Platelet Volume 9.0 FL Neutrophils (%) (Auto) 75.2 % Lymphocytes (%) (Auto) 15.7 % Monocytes (%) (Auto) 6.4 % Eosinophils (%) (Auto) 1.8 % Basophils (%) (Auto) 0.9 % Neutrophils # (Auto) 4.6 TH/MM3 Lymphocytes # (Auto) 1.0 TH/MM3 Monocytes # (Auto) 0.4 TH/MM3 Eosinophils # (Auto) 0.1 TH/MM3 Basophils # (Auto) 0.1 TH/MM3 CBC Comment DIFF FINAL Differential Comment Sodium Level 140 MEQ/L Potassium Level 5.0 MEQ/L Chloride Level 108 MEQ/L Carbon Dioxide Level 23.3 MEQ/L Anion Gap 9 MEQ/L Blood Urea Nitrogen 16 MG/DL Creatinine 1.31 MG/DL Estimat Glomerular Filtration 53 ML/MIN Rate Random Glucose 168 MG/DL Calcium Level 8.4 MG/DL Magnesium Level 2.0 MG/DL Total Bilirubin 1.0 MG/DL Aspartate Amino Transf 42 U/L (AST/SGOT) Alanine Aminotransferase 27 U/L (ALT/SGPT) Alkaline Phosphatase 75 U/L Troponin I 0.04 NG/ML B-Type Natriuretic Peptide 371 PG/ML Total Protein 6.6 GM/DL Albumin 3.5 GM/DL [facility] Medical Decision Making Medical Screen Exam Complete: Yes Emergency Medical Condition: Yes Interpretation(s) My review of EKG: V paced at a rate of 82, otherwise unremarkable. LABS: CBC remarkable for mild anemia. CMP generally unremarkable. Mildly elevated creatinine. Mildly elevated glucose. Troponin negative BNP 371 Chest x-ray: Cardiomegaly. Bibasilar atelectasis. Differential Diagnosis Cardiomyopathy, CHF, volume overload, weakness, anemia, arrhythmia, other Narrative Course Medical decision making INITIAL: 76 year-old man with a history of known CHF, cardiac myopathy, pulmonary hypertension, presents with weeks to months worth of worsening exercise tolerance. He looks well. Doesn't appear overtly volume overloaded. He had a recent replacement of week for his biventricular pacemaker. This seems to be working well. He is a note from the office today where they recommended some lab work and an x-ray. He states he was referred to the emergency department for these tests. We'll check labs, x-ray, likely discharge for outpatient follow-up. His appointment with cardiology in 3-4 days. Diagnosis Primary Impression: Cardiomyopathy Additional Instructions: Continue current medications. Follow-up with the cardiology some Monday as planned. Return to the emergency department for any new or worsening symptoms. Med/Other Pt SpecificInfo: No Change to Meds Disposition: 01 DISCHARGE HOME Condition: Stable Viel,Calvin C. MD Dec 15, 2016 16:37
[2016-12-15] MEDS ORDERED: SODIUM CHLORIDE 0.9% FLUSH 10 ML FLUSH IVF PRN (16:45)
--- NOTE | 2016-12-15 16:58 | RADRPT ---
EXAM DATE/TIME: 12/15/2016 16:41 [facility] COMPARISON: No previous studies available for comparison. INDICATIONS : Patient has been short of breath for one month. MEDICAL HISTORY : Hypertension. SURGICAL HISTORY : Pacemaker. ENCOUNTER: Initial ACUITY: 1 month PAIN SCORE: 0/10 LOCATION: Bilateral chest FINDINGS: The heart is enlarged. A left subclavian multilead pacemaker has its tips in the right heart. There is no pneumothorax. The pulmonary vascular pattern is normal. Bibasilar atelectatic changes are no kylah. CONCLUSION: 1. Cardiomegaly. 2. Bibasilar atelectatic changes. Brandon Jaime MD on December 15, 2016 at 16:54 Board Certified Radiologist. This report was verified electronically.
[2016-12-15 16:59] LABS: AUTOMATED NEUTROPHIL # 4.6 TH/MM3 (1.8-7.7); BASOPHIL # 0.1 TH/MM3 (0-0.2); BASOPHIL % 0.9 % (0.0-2.0); EOSINOPHIL # 0.1 TH/MM3 (0-0.4); EOSINOPHIL % 1.8 % (0.0-4.0); HEMATOCRIT 36.1 % (39.0-51.0); HEMO FLAGS DIFF FINAL; LYMPH % 15.7 % (9.0-44.0); MEAN CELL VOLUME 101.4 FL (80.0-100.0); MEAN CORPUSCULAR HGB CONC 34.5 % (32.0-36.0); MONO % 6.4 % (0.0-8.0); NEUT % 75.2 % (16.0-70.0); PLATELET COUNT 218 TH/MM3 (150-450); RED BLOOD COUNT 3.56 MIL/MM3 (4.50-5.90); RED CELL DISTRIBUTION WIDTH 15.3 % (11.6-17.2); WHITE BLOOD COUNT 6.1 TH/MM3 (4.0-11.0)
[2016-12-15 17:25] LABS: ALKALINE PHOSPHATASE 75 U/L (45-117)
[2016-12-15 17:26] LABS: ALT (GPT) 27 U/L (12-78); ANION GAP 9 MEQ/L (5-15); AST (GOT) 42 U/L (15-37); BICARBONATE 23.3 MEQ/L (21.0-32.0); BLOOD UREA NITROGEN 16 MG/DL (7-18); CHLORIDE 108 MEQ/L (98-107); GLOMERULAR FILTRATION RATE 53 ML/MIN (>89); SODIUM (NA) 140 MEQ/L (136-145)
[2016-12-15] MEDS ORDERED: ADVI200C5 PO (18:01)
[2016-12-15] MEDS ORDERED: AMLO5TAB2 PO (18:01)
[2016-12-15] MEDS ORDERED: COUM7.5T PO (18:01)
[2016-12-15] MEDS ORDERED: WARF-22 PO (18:01)
--- NOTE | 2016-12-17 11:16 | EKG ---
Date Performed: 12/15/2016 Time Performed: 16:21:32 PTAGE: 76 years EKG: ELECTRONIC VENTRICULAR PACEMAKER ABNORMAL RHYTHM ECG PREVIOUS TRACING : 11/04/2016 03.31 DOCTOR: Luciano Drake Interpretating Date/Time 12/17/2016 11:13:27
== END 2016-12-15 18:51 | disposition home or self-care (01) ==
LOC: NEPE 15:32
DX: I42.9 Cardiomyopathy, unspecified (principal); I50.9 Heart failure, unspecified; I27.2 Other secondary pulmonary hypertension; I25.10 Atherosclerotic heart disease of native coronary artery without angina pectoris; I10 Essential (primary) hypertension; E11.9 Type 2 diabetes mellitus without complications; Z79.01 Long term (current) use of anticoagulants; Z79.4 Long term (current) use of insulin; R94.31 Abnormal electrocardiogram [ECG] [EKG]
CPT/HCPCS: 71020; 80053; 83735; 83880; 84484; 85025; 93005